=== PATIENT | female | born 1960 | race African-American/Black ===

== ENCOUNTER 2019-04-05 10:29 | Emergency (ER) | payer OTHER ==
[~2019-04-05] VITALS: Ht 165.1 cm; Wt 55.3 kg
[2019-04-05 10:53] VITALS: BP 142/61
[2019-04-05] MEDS ORDERED: KETOROLAC TROMETH 60MG/2ML VIAL IM ONE (11:15)
== END 2019-04-05 12:12 | disposition home or self-care (01) ==
LOC: ER 10:29
DX: M54.42 Lumbago with sciatica, left side (principal)
CPT/HCPCS: 72100; 81002; 81025; 99283; J1885

== ENCOUNTER 2019-10-08 07:51 | Inpatient (IN) | payer OTHER ==
[~2019-10-08] VITALS: Ht 165.1 cm; Wt 58.5 kg
[2019-10-08] MEDS ORDERED: SODIUM CHLORIDE 0.9% 1,000 ML IVB ONE (08:51)
[2019-10-08 09:33] LABS: Basophils # (auto) 0 10 ^3/uL (0-0.2); Basophils % (auto) 0.8 % (0.0-2.0); Eosinophils # (auto) 0.1 10 ^3/uL (0-0.8); Eosinophils % (auto) 3.1 % (0.0-7.0); Hematocrit 40.9 % (36.0-46.0); Hemoglobin 14.3 g/dL (12.2-16.2); Lymphocytes # (auto) 1.4 10 ^3/uL (0.4-5.4); Lymphocytes % (auto) 38.6 % (10.0-50.0); Mean Corpuscular Hemoglobin 31.6 pg (28.0-32.0); Mean Corpuscular Hgb Conc. 34.9 g/dL (32.0-36.0); Mean Corpuscular Volume 90.5 fL (80.0-100.0); Monocytes # (auto) 0.3 10 ^3/uL (0-1.3); Monocytes % (auto) 9.2 % (0.0-12.0); Neutrophils # (auto) 1.7 10 ^3/uL (1.6-8.6); Neutrophils % (auto) 48.3 % (37.0-80.0); Nucleated Red Blood Cells % 0.2 %; Platelet Count (auto) 260 10^3/uL (140-450); Red Blood Cells 4.52 10^6/uL (4.0-5.20); White Blood Cell 3.5 10^3/uL (4.4-10.8)
[2019-10-08 09:36] LABS: Urine Bacteria FEW /hpf (None Seen); Urine Blood Negative /uL (Negative); Urine Specific Gravity 1.003 (1.001-1.035); Urine WBC <1 /hpf (0 - 5)
[2019-10-08 09:48] LABS: Albumin 4.2 g/dL (3.4-5.0); Anion Gap 5 (5-15); Blood Urea Nitrogen 9 mg/dL (7-18); Calcium 9.4 mg/dL (8.5-10.1); Carbon Dioxide 28 mmol/L (21-32); Chloride 107 mmol/L (98-107); Glucose 84 mg/dL (74-106); Magnesium 2.4 mg/dL (1.6-2.6); Sodium 140 mmol/L (136-145)
[2019-10-08 09:53] LABS: Alanine Aminotransferase 25 U/L (13-56); Alkaline Phosphatase 86 U/L (45-117); Aspartate Aminotransferase 22 U/L (15-37); BUN/Creatinine Ratio 12.9; Bilirubin, Total 0.4 mg/dL (0.2-1.0); GFR African American 111 mL/min; GFR Non-African American 92 mL/min; Total Protein 8.4 g/dL (6.4-8.2)
[2019-10-08] MEDS ORDERED: PROMETHAZINE HCL 25 MG/ML 1ML IV PRN (14:15)
[2019-10-08] MEDS ORDERED: LACTULOSE 20Gm/30ML SOLN PO PRN (14:15)
[2019-10-08] MEDS ORDERED: traMADol HCL 50 MG TAB PO PRN (14:15)
[2019-10-08] MEDS ORDERED: NITROGLYCERIN 0.4 MG SL TAB SL PRN (14:15)
[2019-10-08] MEDS ORDERED: MORPHINE SULF INJ 2 MG/ML SYRINGE 1ML IV PRN (14:15)
[2019-10-08] MEDS ORDERED: ACETAMINOPHEN 500 MG TAB PO PRN (14:15)
[2019-10-08] MEDS ORDERED: ALBUTEROL SULF 2.5 MG/0.5ML(0.5%) NEB SOLN NEB PRN (14:15)
[2019-10-08] MEDS ORDERED: TEMAZEPAM 15 MG CAP PO PRN (14:15)
[2019-10-08] MEDS: SODIUM CHLORIDE 0.9% 1,000 ML IV SCH (15:08)
--- NOTE | 2019-10-08 15:41 | NUR ---
Telemetry admit from ER KISHOR FUNG admitted to Telemetry unit after SBAR received. Patient oriented to SIRI PEREZRN primary RN, unit,245 room, A bed, and unit policies regarding patient care and visiting hours. Patient now on continuous telemetry monitoring, tele box #9 and telemetry reading on arrival to unit is SR 76. Patient placed weighed by bedscale and encouraged to call if they need something. All questions and concerns addressed, patient verbalized understanding.
[2019-10-08] MEDS ORDERED: ENOXAPARIN SOD 60 MG/0.6 ML SYRINGE SC ONE (17:00)
[2019-10-08 17:02] VITALS: BP 142/63
--- NOTE | 2019-10-08 17:30 | NUR ---
PATIENT REFUSED LOVENOX, PATIENT EDUCATED OF RISK AND BENEFITS OF NOT TAKING MEDIATION PATIENT VERBALIZED UNDERSTANDING. PATIENT STILL REFUSED.
[2019-10-08] MEDS ORDERED: IOHEXOL 350 MG/ML 100ML IJ ONE (18:54)
--- NOTE | 2019-10-08 19:04 | NUR ---
PATIENT TAKEN DOWN TO RADIOLOGY.
--- NOTE | 2019-10-08 19:30 | NUR ---
Opening Shift Note Assumed care of patient, awake and alert. No S/S of distress/SOB or pain. Insructed on POC and to callfor assist PRN, will continue to monitor for changes Q1hr and PRN. Fall and safety precautions in place. Call light within reach.
--- NOTE | 2019-10-08 21:00 | NUR ---
[employer] at bedside for scheduled blood draw at this time (troponin). Patient refusing to have blood drawn, stating she's "been poked several times today." Dr. Ramirez at bedside and was informed troponin being drawn. Per Dr. Ramirez, ok to cancel future orders for troponin due to patient having 3 negative consecutive trops. Informed shrub planter, Eudar, to cancel future scheduled trops.
[2019-10-08] MEDS: ATORVASTATIN 20 MG TAB PO SCH ×2 (21:25→22:00)
[2019-10-08 22:00] VITALS: BP 121/68
--- NOTE | 2019-10-08 22:00 | NUR ---
DR. ALVINA Ramirez at bedside, updating patient on plan of care. New orders received, will input and carry out
--- NOTE | 2019-10-08 22:32 | NUR ---
Respiratory note: PT SEEN AND ASSESSED FOR PRN MED NEB TX AT 2232. TX IS NOT INDICATED AT THIS TIME. PT DISPLAYING NO SIGNS OF RESPIRATORY DISTRESS. HR 76 RR 16 POX 99% ON ROOM AIR. PT AWARE TO CALL FOR RT IF ANY DISTRESS OCCURS
[2019-10-08 23:47] LABS: Alcohol, Urine < 3.0 mg/dL (0-5); Amphetamine Screen, Urine NEGATIVE (NEGATIVE); Barbiturate Scree,Urine NEGATIVE (NEGATIVE); Benzodiazephine Screen, Urine NEGATIVE (NEGATIVE); Cannabinoid Screen, Urine NEGATIVE (NEGATIVE); Cocaine Screen, Urine NEGATIVE (NEGATIVE); Opiate Scree,Urine NEGATIVE (NEGATIVE); Phencyclidine Screen, Urine NEGATIVE (NEGATIVE)
[2019-10-09 03:20] VITALS: BP 121/68
[2019-10-09] MEDS: SODIUM CHLORIDE 0.9% 1,000 ML IV SCH (03:53)
[2019-10-09 05:00] VITALS: BP 113/54
[2019-10-09 06:14] LABS: Cholesterol 168 mg/dL (< 200); HDL Cholesterol 67 mg/dL (40-59); LDL Cholesterol 84 mg/dL (< 100); Triglycerides 71 mg/dL (< 150)
[2019-10-09 09:17] VITALS: BP 106/56
--- NOTE | 2019-10-09 09:29 | NUR ---
PTIENT REFUSED MORNING MEDICATIONS, SHE REPORTS SHE WOULD LIKE TO SPEAK WITH THE DR FIRST. PT EDUCATED ON THE USE OF LOVENOX AND HOW IT HELPS PREVENT BLOOD CLOTS AND STROKES. PT EDUCATED ON NITROGLYCERIN, AND HOW IT RELAXES THE BLOOD VESSELS, REDUCING PRESSURE OF FLOW ON THE HEART AND HOW IT HELPS RELIEVE CHEST PAIN. PT STILL REFUSES MEDS, WILL CONTINUE TO MONITOR.
[2019-10-09] MEDS ORDERED: ASPirin 81 mg TAB PO SCH (10:00)
[2019-10-09] MEDS ORDERED: ENOXAPARIN SOD 40 MG/0.4 ML SYRINGE SC SCH (10:00)
[2019-10-09] MEDS ORDERED: NITROGLYCERIN 0.2MG/HR TOPICAL PATCH TD SCH (10:00)
[2019-10-09 11:54] VITALS: BP 101/52
[2019-10-09 15:23] VITALS: BP 106/56
--- NOTE | 2019-10-09 16:35 | NUR ---
Discharge instructions given as ordered. Encourage to follow up with PMD as instructed. All questions and concerns addressed. Patient verbalized understanding. IV removed with catheter intact, pressure dressing applied. Telemetry unit returned to ICU. Patient taken to vehicle via wheelchair with all personal belongings, accompanied by staff. No distress noted at time of departure.
== END 2019-10-09 16:00 | disposition home or self-care (01) | DRG 313 ==
LOC: ER 07:51 → TELE 07:52 → TELE-EAST 15:31
PROVIDERS: ADMIT Internal Medicine; ATTEND Internal Medicine
DX: R07.89 Other chest pain (principal); I11.9 Hypertensive heart disease without heart failure; G89.29 Other chronic pain; F32.9 Major depressive disorder, single episode, unspecified; M54.9 Dorsalgia, unspecified; F41.9 Anxiety disorder, unspecified; Z83.3 Family history of diabetes mellitus; Z82.49 Family history of ischemic heart disease and other diseases of the circulatory system
CPT/HCPCS: 36415; 71046; 71275; 80053; 80061; 80307; 81001; 82550; 83735; 83880; 84443; 84484; 85025; 85379; 85652; 93005; 93306; 96360; 96361; G0378

== ENCOUNTER 2021-03-02 12:47 | Emergency (ER) | payer OTHER ==
[~2021-03-02] VITALS: Ht 165.1 cm; Wt 62.6 kg
[2021-03-02 13:31] LABS: Basophils # (auto) 0 10 ^3/uL (0-0.2); Basophils % (auto) 0.9 % (0.0-2.0); Eosinophils # (auto) 0.1 10 ^3/uL (0-0.8); Eosinophils % (auto) 2.4 % (0.0-7.0); Hematocrit 40.7 % (36.0-46.0); Hemoglobin 13.7 g/dL (12.2-16.2); Lymphocytes # (auto) 1.7 10 ^3/uL (0.4-5.4); Lymphocytes % (auto) 45.6 % (10.0-50.0); Mean Corpuscular Hemoglobin 30.1 pg (28.0-32.0); Mean Corpuscular Hgb Conc. 33.7 g/dL (32.0-36.0); Mean Corpuscular Volume 89.4 fL (80.0-100.0); Monocytes # (auto) 0.3 10 ^3/uL (0-1.3); Monocytes % (auto) 9.4 % (0.0-12.0); Neutrophils # (auto) 1.5 10 ^3/uL (1.6-8.6); Neutrophils % (auto) 41.7 % (37.0-80.0); Nucleated Red Blood Cells % 0.2 %; Red Blood Cells 4.55 10^6/uL (4.0-5.20); Red Cell Distribution Width 12.9 % (11.8-14.3); White Blood Cell 3.6 10^3/uL (4.4-10.8)
[2021-03-02 13:47] VITALS: BP 134/64
[2021-03-02 13:55] LABS: Albumin 4.1 g/dL (3.4-5.0); Anion Gap 5 (5-15); Blood Urea Nitrogen 9 mg/dL (7-18); Calcium 9.3 mg/dL (8.5-10.1); Carbon Dioxide 26 mmol/L (21-32); Chloride 108 mmol/L (98-107); Glucose 87 mg/dL (74-106); Sodium 139 mmol/L (136-145)
[2021-03-02 14:01] LABS: Alanine Aminotransferase 23 U/L (13-56); Alkaline Phosphatase 73 U/L (45-117); Aspartate Aminotransferase 19 U/L (15-37); BUN/Creatinine Ratio 13.8; Bilirubin, Total 0.5 mg/dL (0.2-1.0); GFR African American 120 mL/min; GFR Non-African American 99 mL/min; Total Protein 8.4 g/dL (6.4-8.2)
== END 2021-03-02 15:01 | disposition home or self-care (01) ==
LOC: ER 12:47
DX: R07.89 Other chest pain (principal); F41.9 Anxiety disorder, unspecified; Z88.8 Allergy status to other drugs, medicaments and biological substances
CPT/HCPCS: 36415; 71045; 80053; 84484; 85025; 93005